=== PATIENT | female | born 2000 | race Hispanic/Latino ===

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

== ENCOUNTER 2021-08-15 20:31 | Inpatient (IN) | payer MEDICAID, OTHER ==
[2021-08-15] MEDS ORDERED: Ondansetron PF 4 MG/2 ML Vial ONE (20:52)
[2021-08-15] MEDS ORDERED: Lorazepam 2 MG/ML VIAL ONE (21:01)
[2021-08-15] MEDS ORDERED: Morphine 4 MG/ML VIAL ONE (21:13)
[2021-08-15 21:22] LABS: #Eosinphils 0.2 thou/uL (0.0-0.7); #Lymphocytes 1.7 thou/uL (1.20-3.40); #Monocytes 0.5 thou/uL (0.11-0.59); #Neutrophils 4.6 thou/uL (1.40-6.50); %Basophils 0.5 % (0.0-1.0); %Eosinophils 2.4 % (0.0-10.0); %Lymphocytes 24.4 % (21.0-51.0); %Monocytes 6.9 % (0.0-10.0); %Neutrophils 65.9 % (42.0-75.0); Hemoglobin 12.8 g/dL (12.0-16.0); Mean Corpuscular HGB CONC 31.4 g/dL (32.0-36.0); Mean Corpuscular Volume 89.1 fL (78.0-98.0); Mean Platelet Volume 6.7 fL (7.4-10.4); Platelet Count 345 thou/uL (130-400); RBC Distribution Width 12.6 % (11.5-14.5); Red Blood Cell (RBC) Count 4.56 mill/uL (4.20-5.40)
[2021-08-15 21:24] LABS: BHCG - Serum Negative (NEGATIVE); Pregs Control Background? CLEAR/WHITE (CLR/WHITE); Pregs Control Bar Appear? YES (CONTROL BAR)
[2021-08-15 21:41] LABS: ALT (SGPT) 410 U/L (8-55); AST (SGOT) 155 U/L (5-34); Albumin 3.9 g/dL (3.5-5.0); Alkaline Phosphatase 102 U/L (40-110); Anion Gap 11 mmol/L (10-20); BUN (Urea Nitrogen) 10 mg/dL (7.0-18.7); Bilirubin, Total 3.1 mg/dL (0.2-1.2); Calc. Creatinine Clearance 0 mL/min (70-130); Calcium 8.7 mg/dL (7.8-10.44); Carbon Dioxide 28 mmol/L (22-29); Chloride 104 mmol/L (98-107); Globulin 3.6 g/dL (2.4-3.5); Glucose 99 mg/dL (70-105); Lipase 13 U/L (8-78); Potassium 3.6 mmol/L (3.5-5.1); Protein, Total 7.5 g/dL (6.0-8.3); Sodium 139 mmol/L (136-145)
[2021-08-15 21:49] LABS: Bacteria/HPF 4+ HPF (None Seen); Bilirubin 2+ (Negative); Blood, Urine Trace (Negative); Clarity Clear (Clear); Glucose, Urine (Dipstick) Normal (Negative); Ketone, Urine 10 mg/dL (Negative); Leukocyte 250 Leu/uL (Negative); Mucous/LPF Rare LPF (<2+); Nitrite 1+ (Negative); Protein, Urine (Dipstick) 20 mg/dL (Neg-Trace); RBC/HPF 21-50 HPF (0-3); Renal Epithelial 0-3 HPF (None Seen); Specific Gravity, Urine 1.026 (1.002-1.036)
[2021-08-15] MEDS ORDERED: Piperacillin/Tazobactam 3.375 GM VIAL ONE (22:46)
[2021-08-16] MEDS ORDERED: Morphine 4 MG/ML VIAL SLOW IVP PRN ×2 (01:32→06:12)
[2021-08-16] MEDS ORDERED: Ondansetron ODT 4 MG TAB SL PRN (01:45)
[2021-08-16] MEDS ORDERED: Ondansetron PF 4 MG/2 ML Vial IVP PRN ×2 (01:45→16:31)
[2021-08-16] MEDS: Sodium Chloride 0.9% 1,000 ML IV SCH ×2 (01:50→09:20)
[2021-08-16 01:52] LABS: SARS-CoV-2 NAA Rapid Test Not Detected (NotDetected)
[2021-08-16] MEDS: Piperacillin/Tazobactam 3.375 GM in Sodium Chloride 0.9% 100 ML IVPB SCH ×2 (04:19→12:08)
[2021-08-16 05:40] LABS: #Basophils 0.1 thou/uL (0.0-0.2); #Eosinphils 0.2 thou/uL (0.0-0.7); #Lymphocytes 2.6 thou/uL (1.20-3.40); #Monocytes 0.5 thou/uL (0.11-0.59); #Neutrophils 2.8 thou/uL (1.40-6.50); %Basophils 1.2 % (0.0-1.0); %Eosinophils 3.9 % (0.0-10.0); %Lymphocytes 41.8 % (21.0-51.0); %Monocytes 8.2 % (0.0-10.0); Hemoglobin 11.2 g/dL (12.0-16.0); Mean Corpuscular HGB CONC 32.4 g/dL (32.0-36.0); Mean Corpuscular Hemoglobin 28.1 pg (27.0-31.0); Mean Corpuscular Volume 86.9 fL (78.0-98.0); Mean Platelet Volume 6.5 fL (7.4-10.4); Platelet Count 304 thou/uL (130-400); RBC Distribution Width 12.7 % (11.5-14.5); White Blood Cell (WBC) Count 6.3 thou/uL (4.8-10.8)
[2021-08-16 06:04] LABS: ALT (SGPT) 288 U/L (8-55); AST (SGOT) 92 U/L (5-34); Albumin 3.2 g/dL (3.5-5.0); Alkaline Phosphatase 84 U/L (40-110); Anion Gap 11 mmol/L (10-20); BUN (Urea Nitrogen) 8 mg/dL (7.0-18.7); Bilirubin, Total 1.9 mg/dL (0.2-1.2); Calc. Creatinine Clearance 0 mL/min (70-130); Calcium 7.9 mg/dL (7.8-10.44); Carbon Dioxide 22 mmol/L (22-29); Chloride 109 mmol/L (98-107); Globulin 2.8 g/dL (2.4-3.5); Glucose 86 mg/dL (70-105); Potassium 3.5 mmol/L (3.5-5.1); Sodium 138 mmol/L (136-145)
[2021-08-16] MEDS ORDERED: Ketorolac Tromethamine 30 MG/ML VIAL IVP PRN ×2 (06:12→16:31)
[2021-08-16] MEDS ORDERED: Morphine 2 MG/ML VIAL SLOW IVP PRN (06:12)
[2021-08-16 06:37] VITALS: BMI 30.2
[2021-08-16] MEDS ORDERED: Midazolam HCl 2 mg/2 ml Vial ONE (15:02)
[2021-08-16] MEDS ORDERED: fentaNYL Citrate/PF 100 MCG/2 ML SYRINGE ONE (15:03)
[2021-08-16] MEDS ORDERED: Lidocaine 1% w/Epinephrine 1:100K 20 ML VIAL ONE (15:04)
[2021-08-16] MEDS ORDERED: Bupivacaine 0.25% HCL 30 ML VIAL ONE (15:04)
[2021-08-16] MEDS ORDERED: Iopamidol 15 ML ONE (15:05)
[2021-08-16] MEDS ORDERED: Glycopyrrolate 0.2 MG/ML 5 ML SYRINGE ONE (15:22)
[2021-08-16] MEDS ORDERED: Ketorolac Tromethamine 30 MG/ML VIAL ONE (15:22)
[2021-08-16] MEDS ORDERED: Ondansetron PF 4 MG/2 ML Vial ONE (15:22)
[2021-08-16] MEDS ORDERED: PROPOFOL 200 MG/20 ML VIAL ONE (15:22)
[2021-08-16] MEDS ORDERED: Lidocaine 1% PF 5 ML VIAL ONE (15:22)
[2021-08-16] MEDS ORDERED: Rocuronium Bromide 10 MG/ML (10ML VIAL) ONE (15:22)
[2021-08-16] MEDS ORDERED: Dexamethasone 20 MG/5 ML VIAL ONE (15:22)
[2021-08-16] MEDS ORDERED: Melatonin 3 MG TAB PO PRN (16:31)
[2021-08-16] MEDS ORDERED: Mag-Al 1200 mg/1200 mg/30 ML UDCUP PO PRN (16:31)
[2021-08-16] MEDS ORDERED: Dextrose 5% in Water 1,000 ML IV PRN (16:31)
[2021-08-16] MEDS ORDERED: Calcium Carbonate 500 MG ChewTAB PO PRN (16:31)
[2021-08-16] MEDS ORDERED: Dextrose 50% Abboject 50 ML SYRINGE SLOW IVP PRN (16:31)
[2021-08-16] MEDS ORDERED: Promethazine HCl 25 MG/ML VIAL IM PRN ×2 (16:31→16:41)
[2021-08-16] MEDS ORDERED: hydrALAZINE 20 MG/ML VIAL SLOW IVP PRN (16:31)
[2021-08-16] MEDS ORDERED: Ondansetron HCl/PF 4 MG/2 ML Vial IVP PRN (16:41)
[2021-08-16] MEDS ORDERED: Promethazine HCl 25 MG/ML VIAL IVPB PRN (16:41)
[2021-08-16] MEDS ORDERED: Fentanyl 100 MCG/2 ML VIAL ONE (17:04)
[2021-08-16] MEDS: D5 1/2 NS w/20 mEq KCL 1,000 ML IV SCH (17:42)
[2021-08-16] MEDS: HYDROcodone/Acetaminophen 7.5/325 mg Tablet PO PRN ×2 (18:28→22:58)
[2021-08-16] MEDS: Famotidine 20 MG TAB PO SCH (19:35)
[2021-08-16] MEDS: Morphine 4 MG/ML VIAL SLOW IVP PRN ×2 (19:36→21:40)
[2021-08-16] MEDS: Famotidine/PF 20 mg/2ml Vial SLOW IVP SCH (22:03)
[2021-08-17] MEDS: Morphine 4 MG/ML VIAL SLOW IVP PRN ×3 (00:06→08:47)
[2021-08-17] MEDS: D5 1/2 NS w/20 mEq KCL 1,000 ML IV SCH ×3 (02:35→15:49)
[2021-08-17 06:04] LABS: #Eosinphils 0.1 thou/uL (0.0-0.7); #Lymphocytes 1.9 thou/uL (1.20-3.40); #Monocytes 0.8 thou/uL (0.11-0.59); #Neutrophils 8.2 thou/uL (1.40-6.50); %Basophils 0.2 % (0.0-1.0); %Eosinophils 0.6 % (0.0-10.0); %Lymphocytes 17.6 % (21.0-51.0); %Monocytes 7.3 % (0.0-10.0); %Neutrophils 74.4 % (42.0-75.0); Hemoglobin 11.5 g/dL (12.0-16.0); Mean Corpuscular HGB CONC 32.1 g/dL (32.0-36.0); Mean Corpuscular Hemoglobin 28.6 pg (27.0-31.0); Mean Corpuscular Volume 89.1 fL (78.0-98.0); Mean Platelet Volume 6.6 fL (7.4-10.4); Platelet Count 297 thou/uL (130-400); RBC Distribution Width 12.6 % (11.5-14.5); Red Blood Cell (RBC) Count 4.03 mill/uL (4.20-5.40); White Blood Cell (WBC) Count 11.1 thou/uL (4.8-10.8)
[2021-08-17 06:26] LABS: ALT (SGPT) 222 U/L (8-55); AST (SGOT) 64 U/L (5-34); Albumin 3.3 g/dL (3.5-5.0); Alkaline Phosphatase 86 U/L (40-110); Anion Gap 9 mmol/L (10-20); BUN (Urea Nitrogen) 6 mg/dL (7.0-18.7); Bilirubin, Total 2.9 mg/dL (0.2-1.2); Calc. Creatinine Clearance 182 mL/min (70-130); Calcium 8.1 mg/dL (7.8-10.44); Carbon Dioxide 25 mmol/L (22-29); Chloride 105 mmol/L (98-107); Glucose 111 mg/dL (70-105); Lipase 10 U/L (8-78); Potassium 3.8 mmol/L (3.5-5.1); Protein, Total 6.3 g/dL (6.0-8.3); Sodium 135 mmol/L (136-145)
[2021-08-17] MEDS ORDERED: Indomethacin 50 MG SUPP PR SCH (08:00)
[2021-08-17] MEDS: Famotidine 20 MG TAB PO SCH ×2 (08:40→19:27)
[2021-08-17] MEDS: Famotidine/PF 20 mg/2ml Vial SLOW IVP SCH ×2 (08:47→19:27)
[2021-08-17] MEDS ORDERED: Iopamidol 30 ML ONE (10:43)
[2021-08-17] MEDS ORDERED: Indomethacin 50 MG SUPP ONE (10:44)
[2021-08-17] MEDS ORDERED: Lidocaine 2% Jelly 5 ML TUBE ONE (10:56)
[2021-08-17] MEDS ORDERED: fentaNYL Citrate/PF 100 MCG/2 ML SYRINGE ONE (10:56)
[2021-08-17] MEDS ORDERED: Ondansetron HCl/PF 4 MG/2 ML Vial IVP PRN (11:34)
[2021-08-17] MEDS ORDERED: Promethazine HCl 25 MG/ML VIAL IM PRN (11:34)
[2021-08-17] MEDS ORDERED: Promethazine HCl 25 MG/ML VIAL IVPB PRN (11:34)
[2021-08-17] MEDS ORDERED: Fentanyl 100 MCG/2 ML VIAL ONE (12:08)
[2021-08-17] MEDS: HYDROcodone/Acetaminophen 7.5/325 mg Tablet PO PRN (15:49)
[2021-08-18] MEDS: D5 1/2 NS w/20 mEq KCL 1,000 ML IV SCH ×2 (03:49→12:56)
[2021-08-18 06:15] LABS: ALT (SGPT) 159 U/L (8-55); AST (SGOT) 40 U/L (5-34); Albumin 3.1 g/dL (3.5-5.0); Alkaline Phosphatase 87 U/L (40-110); Bilirubin, Direct 0.7 mg/dL (0.1-0.3); Bilirubin, Total 1.2 mg/dL (0.2-1.2)
[2021-08-18] MEDS: Famotidine 20 MG TAB PO SCH (08:21)
[2021-08-18] MEDS: HYDROcodone/Acetaminophen 7.5/325 mg Tablet PO PRN (08:23)
[2021-08-18] MEDS: Famotidine/PF 20 mg/2ml Vial SLOW IVP SCH (10:02)
[2021-08-18 11:56] VITALS: BP 101/65; TEMP 98.4
== END 2021-08-18 15:05 | disposition home or self-care (01) | DRG 418 ==
LOC: ERS 20:31 → SURG A 08-16 00:19
PROVIDERS: ADMIT Surgery; ATTEND Surgery
PROC: 0FT44ZZ Resection of Gallbladder, Percutaneous Endoscopic Approach (ICD-10-PCS; principal; 2021-08-16)
PROC: BF10YZZ Fluoroscopy of Bile Ducts using Other Contrast (ICD-10-PCS; 2021-08-16)
PROC: 0F798ZZ Dilation of Common Bile Duct, Via Natural or Artificial Opening Endoscopic (ICD-10-PCS; 2021-08-17)
DX: K80.42 Calculus of bile duct with acute cholecystitis without obstruction (principal); G82.22 Paraplegia, incomplete; N39.0 Urinary tract infection, site not specified; Z20.822 Contact with and (suspected) exposure to COVID-19
CPT/HCPCS: 36415; 47532; 76000; 76705; 80053; 80076; 81003; 81015; 83605; 83690; 84703; 85025; 87040; 87077; 87086; 87186; 88304; C1713; J1100; J1885; J2060; J2250; J2270; J2405; J2543; J2550; J2704; J3010; J3480; J3490; J7050; Q9967; S0020; S0028; U0002

== ENCOUNTER 2021-12-26 07:32 | Day surgery (SDC) | payer MEDICAID, OTHER ==
[2021-12-22 10:54] VITALS: BMI 31.4
[2021-12-26 10:18] VITALS: BP 112/58; TEMP 98.8
[2021-12-26] MEDS ORDERED: Iopamidol-M 300 61% 15 ML VIAL ONE (14:11)
== END 2021-12-26 09:45 | disposition home or self-care (01) ==
LOC: RAD 07:32
PROVIDERS: ATTEND Neurological Surgery
DX: M54.16 Radiculopathy, lumbar region (principal); M47.14 Other spondylosis with myelopathy, thoracic region; K59.9 Functional intestinal disorder, unspecified; N31.9 Neuromuscular dysfunction of bladder, unspecified; F33.9 Major depressive disorder, recurrent, unspecified; M21.372 Foot drop, left foot; M21.371 Foot drop, right foot
CPT/HCPCS: 62305; 72129; 72132; Q9967

== ENCOUNTER 2023-04-10 11:42 | Outpatient (CLI) | payer OTHER, MEDICAID ==
[2023-04-10 13:22] LABS: #Eosinphils 0.3 10x3/uL (0.0-0.5); #Monocytes 0.7 10x3/uL (0.0-1.1); #Neutrophils 6.5 10x3/uL (1.5-8.4); %Basophils 0.3 % (0.0-2.0); %Eosinophils 2.7 % (0.0-6.0); %Neutrophils 57.6 % (40.0-75.0); Hematocrit 39.4 % (34.9-44.5); Hemoglobin 12.8 g/dL (12.0-15.5); Mean Corpuscular HGB CONC 32.5 g/dL (32.0-36.0); Mean Corpuscular Hemoglobin 26.7 pg (27.0-33.0); Mean Corpuscular Volume 82.3 fl (81.6-98.3); Mean Platelet Volume 9.1 fl (7.4-10.4); Platelet Count 354 10x3/uL (150-450); RBC Distribution Width 13.7 % (11.5-14.5); Red Blood Cell (RBC) Count 4.79 10x6/uL (3.90-5.03); White Blood Cell (WBC) Count 11.2 10x3/uL (3.5-10.5)
[2023-04-10 13:35] LABS: Anion Gap 16 mmol/L (10-20); BUN (Urea Nitrogen) 8 mg/dL (7.0-18.7); Calc. Creatinine Clearance 0 mL/min (70-130); Calcium 9.2 mg/dL (7.8-10.44); Carbon Dioxide 21 mmol/L (22-29); Chloride 106 mmol/L (98-107); Estimated GFR 129; Glucose 96 mg/dL (70-105); Potassium 3.7 mmol/L (3.5-5.1); Sodium 139 mmol/L (136-145)
[2023-04-10 14:26] LABS: BHCG - Serum Negative (NEGATIVE)
[2023-04-10 14:27] LABS: Pregs Control Background? CLEAR/WHITE (CLR/WHITE); Pregs Control Bar Appear? YES (CONTROL BAR)
== END 2023-04-10 11:43 | disposition home or self-care (01) ==
LOC: LABBT 11:42
PROVIDERS: ATTEND Surgery
DX: Z01.812 Encounter for preprocedural laboratory examination (principal); R15.9 Full incontinence of feces; T14.8XXA Other injury of unspecified body region, initial encounter
CPT/HCPCS: 80048; 83036; 84703; 85025

== ENCOUNTER 2023-04-10 12:00 | Inpatient (IN) | payer OTHER, MEDICAID ==
[2023-04-10 12:52] VITALS: BMI 33.0
[2023-04-17] MEDS ORDERED: fentaNYL PF 100 MCG/2 ML SYRINGE ONE (09:22)
[2023-04-17] MEDS ORDERED: Rocuronium Bromide 10 MG/ML (10ML VIAL) ONE (09:22)
[2023-04-17] MEDS ORDERED: Lidocaine 1% PF 5 ML VIAL ONE (09:22)
[2023-04-17] MEDS ORDERED: PROPOFOL 20 ML ONE ×2 (09:22→11:46)
[2023-04-17] MEDS ORDERED: Ondansetron PF 4 MG/2 ML Vial ONE ×2 (09:26→11:17)
[2023-04-17] MEDS ORDERED: Bupivacaine 0.25% HCL 30 ML VIAL ONE (09:50)
[2023-04-17] MEDS ORDERED: EPINEPHrine 1 MG/ML VIAL ONE (09:50)
[2023-04-17] MEDS ORDERED: Sodium Chloride 0.9% 100 ML ONE (09:58)
[2023-04-17] MEDS ORDERED: cefOXitin 2 GM VIAL ONE (09:58)
[2023-04-17] MEDS ORDERED: Dexamethasone 20 MG/5 ML VIAL ONE (10:24)
[2023-04-17] MEDS ORDERED: fentaNYL 50 mcg/mL 1 mL Vial ONE ×3 (10:33→12:18)
[2023-04-17] MEDS ORDERED: Promethazine HCl 25 MG/ML VIAL IM PRN ×2 (11:02→16:15)
[2023-04-17] MEDS ORDERED: Ondansetron HCl/PF 4 MG/2 ML Vial IVP PRN (11:02)
[2023-04-17] MEDS ORDERED: Ketorolac Tromethamine 30 MG (1 mL) VIAL ONE (11:17)
[2023-04-17] MEDS ORDERED: SUGAMMADEX SODIUM 200 MG/2 ML VIAL ONE (11:17)
[2023-04-17] MEDS ORDERED: HYDROmorphone 2 MG/ML VIAL ONE (12:23)
[2023-04-17] MEDS ORDERED: HYDROmorphone 0.5 MG/0.5 ML SYRINGE ONE (13:55)
[2023-04-17] MEDS ORDERED: Ondansetron PF 4 MG/2 ML Vial IVP PRN (16:15)
[2023-04-17] MEDS ORDERED: Ipratropium/Albuterol 3 ML NEB NEB PRN (16:15)
[2023-04-17] MEDS ORDERED: hydrALAZINE 20 MG/ML VIAL SLOW IVP PRN (16:15)
[2023-04-17] MEDS ORDERED: Dextrose 5% in Water 1,000 ML IV PRN (16:15)
[2023-04-17] MEDS ORDERED: Dextrose 50% Abboject 50 ML SYRINGE SLOW IVP PRN (16:15)
[2023-04-17] MEDS ORDERED: Glucagon 1 MG/ML KIT IM PRN (16:15)
[2023-04-17] MEDS: Ketorolac Tromethamine 30 MG (1 mL) VIAL IVP PRN (17:36)
[2023-04-17] MEDS: HYDROcodone/Acetaminophen 7.5/325 mg Tablet PO PRN (17:36)
[2023-04-17] MEDS: Morphine 4 MG/ML VIAL SLOW IVP PRN ×2 (19:49→22:22)
[2023-04-17] MEDS: Famotidine 20 MG TAB PO SCH (19:50)
[2023-04-17] MEDS: Famotidine/PF 20 mg/2ml Vial SLOW IVP SCH (19:59)
[2023-04-17] MEDS: D5 1/2 NS w/20 mEq KCL 1,000 ML IV SCH (22:16)
[2023-04-18] MEDS: Morphine 4 MG/ML VIAL SLOW IVP PRN ×3 (02:51→19:40)
[2023-04-18] MEDS: HYDROcodone/Acetaminophen 7.5/325 mg Tablet PO PRN ×3 (05:34→22:16)
[2023-04-18] MEDS ORDERED: Enoxaparin 40 MG (0.4 mL) SYRINGE SC SCH (09:00)
[2023-04-18] MEDS: D5 1/2 NS w/20 mEq KCL 1,000 ML IV SCH (09:11)
[2023-04-18] MEDS: Ketorolac Tromethamine 30 MG (1 mL) VIAL IVP PRN ×2 (09:12→16:24)
[2023-04-18] MEDS: Famotidine 20 MG TAB PO SCH ×2 (09:12→19:40)
[2023-04-18] MEDS: Famotidine/PF 20 mg/2ml Vial SLOW IVP SCH ×2 (09:13→19:45)
[2023-04-18 10:50] LABS: #Eosinphils 0.1 thou/uL (0.0-0.7); #Monocytes 0.8 thou/uL (0.11-0.59); #Neutrophils 7.4 thou/uL (1.40-6.50); %Basophils 0.1 % (0.0-1.0); %Eosinophils 0.8 % (0.0-10.0); %Lymphocytes 25.8 % (21.0-51.0); %Monocytes 6.9 % (0.0-10.0); Hematocrit 26.9 % (36.0-47.0); Hemoglobin 8.6 g/dL (12.0-16.0); Mean Corpuscular Hemoglobin 27.7 pg (27.0-31.0); Mean Corpuscular Volume 86.8 fl (78.0-98.0); Mean Platelet Volume 8.4 fL (7.4-10.4); Platelet Count 268 10x3/uL (130-400); RBC Distribution Width 14.2 % (11.5-14.5); White Blood Cell (WBC) Count 11.2 10x3/uL (4.8-10.8)
[2023-04-18 11:21] LABS: Anion Gap 7 mmol/L (10-20); BUN (Urea Nitrogen) 5 mg/dL (7.0-18.7); Calc. Creatinine Clearance 139 mL/min (70-130); Carbon Dioxide 21 mmol/L (22-29); Chloride 105 mmol/L (98-107); Estimated GFR 108; Sodium 126 mmol/L (136-145)
[2023-04-18 12:58] LABS: Potassium 3.2 mmol/L (3.5-5.1)
[2023-04-18 12:59] LABS: Calcium 7.8 mg/dL (7.8-10.44); Glucose 99 mg/dL (70-105)
[2023-04-19] MEDS ORDERED: Acetaminophen 325 MG TAB PO PRN (02:04)
[2023-04-19] MEDS: D5 1/2 NS w/20 mEq KCL 1,000 ML IV SCH ×3 (02:11→09:17)
[2023-04-19] MEDS: Morphine 4 MG/ML VIAL SLOW IVP PRN (02:11)
[2023-04-19] MEDS: Ketorolac Tromethamine 30 MG (1 mL) VIAL IVP PRN (04:35)
[2023-04-19 07:52] LABS: #Eosinphils 0.3 thou/uL (0.0-0.7); #Monocytes 1.2 thou/uL (0.11-0.59); #Neutrophils 7.8 thou/uL (1.40-6.50); %Basophils 0.2 % (0.0-1.0); %Eosinophils 2.6 % (0.0-10.0); %Lymphocytes 28.5 % (21.0-51.0); %Monocytes 8.9 % (0.0-10.0); %Neutrophils 59.2 % (42.0-75.0); Hemoglobin 9.7 g/dL (12.0-16.0); Mean Corpuscular HGB CONC 31.3 g/dL (32.0-36.0); Mean Corpuscular Hemoglobin 27.4 pg (27.0-31.0); Mean Corpuscular Volume 87.6 fl (78.0-98.0); Mean Platelet Volume 8.9 fL (7.4-10.4); Platelet Count 312 10x3/uL (130-400); RBC Distribution Width 14.3 % (11.5-14.5); Red Blood Cell (RBC) Count 3.54 mill/uL (4.20-5.40); White Blood Cell (WBC) Count 13.1 10x3/uL (4.8-10.8)
[2023-04-19] MEDS: Famotidine/PF 20 mg/2ml Vial SLOW IVP SCH (09:14)
[2023-04-19] MEDS: Famotidine 20 MG TAB PO SCH (09:17)
[2023-04-19] MEDS: HYDROcodone/Acetaminophen 7.5/325 mg Tablet PO PRN ×2 (09:17→14:09)
[2023-04-19 12:33] VITALS: BP 116/79; TEMP 98.6
== END 2023-04-19 15:26 | disposition home or self-care (01) | DRG 331 ==
LOC: SURG A 04-17 08:19 → SJJU 04-17 16:08
PROVIDERS: ADMIT Surgery; ATTEND Surgery
PROC: 0D1N4Z4 Bypass Sigmoid Colon to Cutaneous, Percutaneous Endoscopic Approach (ICD-10-PCS; principal; 2023-04-17)
PROC: 3E033XZ Introduction of Vasopressor into Peripheral Vein, Percutaneous Approach (ICD-10-PCS; 2023-04-17)
DX: R15.9 Full incontinence of feces (principal); G83.9 Paralytic syndrome, unspecified; Z79.899 Other long term (current) drug therapy; Z98.1 Arthrodesis status; Z98.890 Other specified postprocedural states; Z90.89 Acquired absence of other organs
CPT/HCPCS: 36415; 36416; 80048; 85025; 97139; A4314; A4649; C1889; J0171; J0665; J0694; J1100; J1170; J1650; J1885; J2270; J2405; J2704; J3010; J3480; J3490

== ENCOUNTER 2025-02-02 09:02 | Emergency (ER) | payer OTHER, MEDICAID ==
[2025-02-02] MEDS ORDERED: Amoxicillin/Potassium Clav 875 MG TAB ONE (09:45)
== END 2025-02-02 11:00 | disposition home or self-care (01) ==
LOC: ERS 09:02
DX: S91.25 Open bite of toe with damage to nail (principal); Z23 Encounter for immunization; W54.0XXA Bitten by dog, initial encounter
CPT/HCPCS: 90471; 90715